=== PATIENT | female | born 1945 | race Caucasian/White ===

== ENCOUNTER → 2016-08-20 | Outpatient (CLI) | payer MEDICARE ==
--- NOTE | 2016-08-22 13:26 | MM ---
Reason for exam: screening (asymptomatic). Last mammogram was performed 1 year and 1 month ago. History: Patient is postmenopausal. Family history of breast cancer in mother at age 80. Physical Findings: A clinical breast exam by your physician is recommended on an annual basis and results should be correlated with mammographic findings. MG 3D Screening Mammo W/Cad Bilateral CC and MLO view(s) were taken. Prior study comparison: July 25, 2015, bilateral MG 3d screening mammo w/cad. June 23, 2014, bilateral MG screening mammo w CAD. March 03, 2013, bilateral digital screening mammo w/CAD. The breast tissue is heterogeneously dense. This may lower the sensitivity of mammography. Finding: There are occasional typically benign round calcifications in the left breast. There is no discrete abnormality. ASSESSMENT: Benign, BI-RAD 2 RECOMMENDATION: Routine screening mammogram of both breasts in 1 year.
== END | disposition home or self-care (01) ==
LOC: RADMAMWWP 10:19
PROVIDERS: ATTEND Obstetrics & Gynecology
DX: Z12.31 Encounter for screening mammogram for malignant neoplasm of breast (principal)
CPT/HCPCS: 77063; G0202

== ENCOUNTER → 2017-10-14 | Outpatient (CLI) | payer MEDICARE ==
--- NOTE | 2017-10-14 10:19 | BD ---
EXAMINATION TYPE: Axial Bone Density DATE OF EXAM: 10/14/2017 COMPARISON: NONE CLINICAL HISTORY: Screening for osteoporosis. Postmenopausal female. Height: 5 FT 2 IN Weight: 163 FRAX RISK QUESTIONS: RISK FACTORS HISTORY OF: Active: YES Postmenopausal woman: AGE 50 MEDICATIONS: Additional Medications: CELEXA, Additional History: EXAM MEASUREMENTS: Bone mineral densitometry was performed using the [employer] System. Bone mineral density as measured about the Lumbar spine is: ----- L1-L4(G/cm2): 1.277 T Score Values are as follows: ----- L2: 1.1 ----- L3: 0.4 ----- L4: 0.7 ----- L1-L4: 0.8 Bone mineral density has: DECREASED -1.2 % since study of: 2012 Bone mineral density about the R hip (g/cm2): 0.869 Bone mineral density about the L hip (g/cm2): 0.888 T Score values are as follows: -----R Neck: -1.2 -----L Neck: -1.1 -----R Total: 0.0 -----L Total: -0.1 Bone mineral density has: DECREASED -3.1 % since study of: 2012 IMPRESSION: Osteopenia (T Score between -2.5 and -1). There is slightly increased risk of fracture and the patient may be considered for treatment. Re-Screen 2-5 years. NOTE: T-SCORE=SD OF THE YOUNG ADULT MEAN.
--- NOTE | 2017-10-16 07:51 | MM ---
Reason for exam: screening (asymptomatic). Last mammogram was performed 1 year and 2 months ago. History: Patient is postmenopausal. Family history of breast cancer in mother at age 80. Physical Findings: A clinical breast exam by your physician is recommended on an annual basis and results should be correlated with mammographic findings. MG 3D Screening Mammo W/Cad Bilateral CC and MLO view(s) were taken. Prior study comparison: August 20, 2016, bilateral MG 3d screening mammo w/cad. July 25, 2015, bilateral MG 3d screening mammo w/cad. The breast tissue is extremely dense which could obscure a lesion on mammography. No significant changes when compared with prior studies. ASSESSMENT: Benign, BI-RAD 2 RECOMMENDATION: Routine screening mammogram of both breasts in 1 year.
== END | disposition home or self-care (01) ==
LOC: RADMAMWWP 08:17
PROVIDERS: ATTEND Obstetrics & Gynecology
DX: Z12.31 Encounter for screening mammogram for malignant neoplasm of breast (principal); Z13.820 Encounter for screening for osteoporosis; M85.80 Other specified disorders of bone density and structure, unspecified site
CPT/HCPCS: 77063; 77067; 77080

== ENCOUNTER → 2018-12-22 | Outpatient (CLI) | payer MEDICARE ==
--- NOTE | 2018-12-24 10:57 | MM ---
Reason for exam: screening (asymptomatic). Last mammogram was performed 1 year and 2 months ago. History: Patient is postmenopausal. Family history of breast cancer in mother at age 80. Physical Findings: A clinical breast exam by your physician is recommended on an annual basis and results should be correlated with mammographic findings. MG 3D Screening Mammo W/Cad Bilateral CC and MLO view(s) were taken. Prior study comparison: October 14, 2017, bilateral MG 3d screening mammo w/cad. August 20, 2016, bilateral MG 3d screening mammo w/cad. The breast tissue is heterogeneously dense. This may lower the sensitivity of mammography. No significant changes when compared with prior studies. ASSESSMENT: Negative, BI-RAD 1 RECOMMENDATION: Routine screening mammogram of both breasts in 1 year.
== END | disposition home or self-care (01) ==
LOC: RADMAMWWP 14:17
PROVIDERS: ATTEND Obstetrics & Gynecology
DX: Z12.31 Encounter for screening mammogram for malignant neoplasm of breast (principal); Z78.0 Asymptomatic menopausal state; Z80.3 Family history of malignant neoplasm of breast
CPT/HCPCS: 77063; 77067

== ENCOUNTER → 2019-12-30 | Outpatient (CLI) | payer MEDICARE ==
--- NOTE | 2019-12-30 15:32 | BD ---
EXAMINATION TYPE: Axial Bone Density DATE OF EXAM: 12/30/2019 COMPARISON: NONE CLINICAL HISTORY: Height: 5 FT 3 IN Weight: 169 FRAX RISK QUESTIONS: Alcohol (3 or more units per day): NO Family History (Parent hip fracture): NO Glucocorticoids (More than 3mos): NO (Ex: prednisone, prednisolone, methylprednisolone, dexamethasone, and hydrocortisone). History of Fracture in Adulthood: NO Secondary Osteoporosis: 1. Type 1 Diabetes: NO 2. Hyperthyroidism: NO 3. Menopause before 45: NO 4. Malnutrition: NO 5. Chronic liver disease: NO Rheumatoid Arthritis: NO Current Tobacco Use: NO RISK FACTORS HISTORY OF: Family History of Osteoporosis: YES Active: YES Postmenopausal woman: AGE 50 MEDICATIONS: Additional Medications: CELEXA, BLOOD PRESSURE MEDS, VIT D3 Additional History: EXAM MEASUREMENTS: Bone mineral densitometry was performed using the [employer] System. Bone mineral density as measured about the Lumbar spine is: ----- L1-L4(G/cm2): 1.291 T Score Values are as follows: ----- L2: 1.6 ----- L3: 0.4 ----- L4: 0.7 ----- L1-L4: 0.9 Bone mineral density has: INCREASED 1.4 % since study of: 2017 Bone mineral density about the R hip (g/cm2): 0.890 Bone mineral density about the L hip (g/cm2): 0.893 T Score values are as follows: -----R Neck: -1.1 -----L Neck: -1.0 -----R Total: -0.1 -----L Total: -0.1 Bone mineral density has: INCREASED 0.1 % since study of: 2018 IMPRESSION: Osteopenia (T Score between -2.5 and -1). There is slightly increased risk of fracture and the patient may be considered for treatment. Re-Screen 2-5 years. NOTE: T-SCORE=SD OF THE YOUNG ADULT MEAN.
--- NOTE | 2020-01-03 11:03 | MM ---
Reason for exam: screening (asymptomatic). Last mammogram was performed 1 year ago. History: Patient is postmenopausal. Family history of breast cancer in mother at age 80. Physical Findings: A clinical breast exam by your physician is recommended on an annual basis and results should be correlated with mammographic findings. MG 3D Screening Mammo W/Cad Bilateral CC and MLO view(s) were taken. Prior study comparison: December 22, 2018, bilateral MG 3d screening mammo w/cad. October 14, 2017, bilateral MG 3d screening mammo w/cad. The breast tissue is heterogeneously dense. This may lower the sensitivity of mammography. No significant changes when compared with prior studies. ASSESSMENT: Negative, BI-RAD 1 RECOMMENDATION: Routine screening mammogram of both breasts in 1 year.
== END | disposition home or self-care (01) ==
LOC: RADMAMWWP 08:11
PROVIDERS: ATTEND Obstetrics & Gynecology
DX: Z12.31 Encounter for screening mammogram for malignant neoplasm of breast (principal); M85.80 Other specified disorders of bone density and structure, unspecified site
CPT/HCPCS: 77063; 77067; 77080

== ENCOUNTER 2020-04-06 07:26 | Day surgery (SDC) | payer MEDICARE ==
[2020-04-04 13:59] VITALS: BMI 30.1
[~2020-04-06 07:26] MED LIST: LACTATED RINGERS 1,000 ML IV SCH; LIDOCAINE 1% (10MG/ML) FOR IV START INTRADERMA PRN
[2020-04-06 08:03] VITALS: RESP 16; TEMP 97.5
[2020-04-06] MEDS ORDERED: PROPOFOL 10 MG/ML 20 ML VIAL IV ONE (08:15)
--- NOTE | 2020-04-06 08:41 | P.PCN ---
Date of Procedure: 04/06/20 Procedure(s) Performed: BRIEF HISTORY: Patient is a 74-year-old pleasant white female scheduled for an elective colonoscopy as a part of evaluation of positive cologuard. No prior history of colonoscopy in the past. PROCEDURE PERFORMED: Colonoscopy with biopsy. PREOPERATIVE DIAGNOSIS: Positive cologuard. IV sedation per Anesthesia. PROCEDURE: After informed consent was obtained, the patient, was brought into the endoscopy unit. IV sedation was administered by Anesthesia under continuous monitoring. Digital rectal examination was normal. Initially the Olympus CF-160 flexible video pediatric colonoscope was then inserted in the rectum, gradually advanced into the cecum with mild to moderate difficulty. Careful examination was performed as the scope was gradually being withdrawn. Ileocecal valve and the appendiceal orifice were visualized and appeared normal. Prep was excellent. On the ileocecal valve there was a 5 mm superficial ulcer that was biopsied. Mucosa of the cecum, ascending colon, transverse colon, descending colon, sigmoid colon, and rectum appeared normal. Scattered sigmoid diverticulosis seen. Retroflexion was performed in the rectum and no lesions were seen. The patient tolerated the procedure well. IMPRESSION: Small superficial ulcerated on the ileocecal valve status post biopsy Scattered sigmoid diverticulosis No evidence of colorectal neoplasia. RECOMMENDATIONS: Findings of this examination were discussed with the patient as well as her family. She was advised to follow with the biopsy results. She can have a repeat screening colonoscopy in 10 years.
[2020-04-06 09:04] VITALS: BP 118/72; PULSE 81
== END 2020-04-06 09:26 | disposition home or self-care (01) ==
LOC: ORWHC2ENDO 07:26
PROVIDERS: ATTEND Internal Medicine Gastroenterology
DX: K63.3 Ulcer of intestine (principal); K57.30 Diverticulosis of large intestine without perforation or abscess without bleeding; I10 Essential (primary) hypertension; F41.9 Anxiety disorder, unspecified; Z87.891 Personal history of nicotine dependence; Z90.710 Acquired absence of both cervix and uterus; Z98.890 Other specified postprocedural states
CPT/HCPCS: 88305; 45380; J2704

== ENCOUNTER 2020-06-12 08:24 | Emergency (ER) | payer MEDICARE ==
[2020-06-12 08:30] VITALS: RESP 18; TEMP 98.9
[2020-06-12 11:05] LABS: Basophils # (A) 0.1 k/uL (0-0.2); Basophils % (A) 1 %; Eosinophils % (A) 1 %; HCT 45.7 % (34.0-46.0); HGB 15.9 gm/dL (11.4-16.0); Lymphocytes # (A) 1.1 k/uL (1.0-4.8); Lymphocytes % (A) 14 %; MCH 30.7 pg (25.0-35.0); MCHC 34.7 g/dL (31.0-37.0); MCV 88.6 fL (80.0-100.0); Monocytes # (A) 0.4 k/uL (0-1.0); Monocytes % (A) 5 %; Neutrophils # (A) 6.4 k/uL (1.3-7.7); Neutrophils % (A) 79 %; Platelet Count 361 k/uL (150-450); RBC 5.16 m/uL (3.80-5.40); RDW 12.7 % (11.5-15.5); WBC 8.1 k/uL (3.8-10.6)
[2020-06-12] MEDS ORDERED: LORazepam 1 MG TAB PO STA (11:12)
[2020-06-12 11:18] LABS: Appearance,Urine Cloudy (Clear); Bacteria,Urine Rare /hpf; Bilirubin,Urine Negative (Negative); Blood,Urine Negative (Negative); Color,Urine Yellow; Glucose,Urine (UA) Negative (Negative); Hyaline Casts,Urine 7 /lpf (0-2); Ketones,Urine 2+ (Negative); Leukocyte Esterase,Urine Large (Negative); Mucus,Urine Many /hpf; Nitrite,Urine Negative (Negative); Protein,Urine Trace (Negative); RBC,Urine 2 /hpf (0-5); Specific Gravity,Urine 1.023 (1.001-1.035); Squamous Epithelial Cell,Urine 5 /hpf (0-4); Urobilinogen,Urine <2.0 mg/dL (<2.0); WBC,Urine 12 /hpf (0-5)
[2020-06-12 11:19] LABS: ALT 13 U/L (4-34); AST 19 U/L (14-36); African American GFR (CKD) >90 (>60 ml/min/1.73 sqM); Albumin 4.5 g/dL (3.5-5.0); Alkaline Phosphatase 77 U/L (38-126); Anion Gap 10 mmol/L; Blood Urea Nitrogen 17 mg/dL (7-17); Calcium 9.5 mg/dL (8.4-10.2); Carbon Dioxide 21 mmol/L (22-30); Chloride 110 mmol/L (98-107); Glucose 105 mg/dL (74-99); Magnesium 2.1 mg/dL (1.6-2.3); Non-African American GFR(CKD) 88 (>60 ml/min/1.73 sqM); Potassium 4.2 mmol/L (3.5-5.1); Sodium 141 mmol/L (137-145); Total Bilirubin 0.6 mg/dL (0.2-1.3); Total Protein 7.4 g/dL (6.3-8.2)
[2020-06-12 11:35] LABS: Cocaine Screen,Urine Not Detected (NotDetected); Phencyclidine Screen,Urine Not Detected (NotDetected); Urn Cannabinoid Scrn Not Detected (NotDetected)
[2020-06-12 11:36] LABS: Amphetamine Screen,Urine Not Detected (NotDetected); Barbiturate Screen,Urine Not Detected (NotDetected); Benzodiazepines Screen,Urine Detected (NotDetected); Methadone Screen, Urine Not Detected (NotDetected); Opiate Screen,Urine Not Detected (NotDetected); Oxycodone Screen, Urine Not Detected (NotDetected); Tricyclic Antidepressant,Urine Not Detected (NotDetected)
--- NOTE | 2020-06-12 11:48 | ED ---
Psych HPI - General Source: patient Mode of arrival: ambulatory <Abbey Bustos - Last Filed: 06/12/20 13:50> <Sudhakar Guy - Last Filed: 06/12/20 16:31> - General Chief Complaint: Psychiatric Symptoms Stated Complaint: Sob/Anxiety Time Seen by Provider: 06/12/20 08:33 - History of Present Illness Initial Comments: 10-year-old male presenting for anxiety since April. Patient states that she has had extreme anxiety since April she states her she come very anxious which is frequently/daily, that she becomes short of breath with these episodes. Patient states that she has no chest pain she denies any fevers cough leg swelling hemoptysis history DVT pulmonary embolism she denies recent surgeries or immobilization. Patient denies any pain with deep inspiration. Denies jaw or arm pain. Denies back pain/abdominal pain or palpitations. Patient states she has almost 100% certain that the shortness of breath is secondary to anxiety as when the anxiety is maximal that has been the shortness of breath is maximal. Patient states that which takes Ativan and this seems to help with the symptoms however she was taking a lot of Ativan and when she switched her psychiatrist he changed her from celexa to another medications gradually. Patient states that he told her not to take the ativan daily or multiple times a day as it is made for PRN use. Patient states that she cannot control her anxiety and is not sure what to do. She denies suicidal or homicial ideations. remaining ROS (-)> (Abbey Bustos) - Related Data Home Medications Medication Instructions Recorded Confirmed Cholecalciferol [Vitamin D3 (25 50 mcg PO DAILY 04/04/20 06/12/20 Mcg = 1000 Iu)] Telmisartan 20 mg PO QAM 04/04/20 06/12/20 Citalopram Hydrobromide [CeleXA] See Taper PO DAILY 06/12/20 06/12/20 Sertraline [Zoloft] See Taper PO DAILY 06/12/20 06/12/20 Previous Rx's Medication Instructions Recorded busPIRone HCl [Buspar] 10 mg PO BID PRN #8 tab 06/12/20 Allergies Allergy/AdvReac Type Severity Reaction Status Date / Time No Known Allergies Allergy Verified 06/12/20 11:40 Review of Systems ROS Other: All systems not noted in ROS Statement are negative. <Abbey Bustos - Last Filed: 06/12/20 13:50> ROS Other: All systems not noted in ROS Statement are negative. <Sudhakar Guy - Last Filed: 06/12/20 16:31> ROS Statement: Those systems with pertinent positive or pertinent negative responses have been documented in the HPI. Past Medical History Past Medical History: Hypertension Additional Past Medical History / Comment(s): HYPOGLYCEMIA (WATCHS DIET). History of Any Multi-Drug Resistant Organisms: None Reported Past Surgical History: Adenoidectomy, Appendectomy, Hernia Repair, Hysterectomy, Tonsillectomy Additional Past Surgical History / Comment(s): RIGHT INGUINAL HERNIA, LEEP PROCEDURE. Past Anesthesia/Blood Transfusion Reactions: Postoperative Nausea & Vomiting (PONV) Additional Past Anesthesia/Blood Transfusion Reaction / Comment(s): PONV X1 Surgery. Past Psychological History: Anxiety Smoking Status: Former smoker Past Alcohol Use History: Occasional Past Drug Use History: None Reported - Past Family History Father Family Medical History: Cancer Brother(s) Family Medical History: Cancer Mother Family Medical History: Cancer <Abbey Bustos - Last Filed: 06/12/20 13:50> General Exam Limitations: no limitations <Abbey Bustos - Last Filed: 06/12/20 13:50> - General Exam Comments Initial Comments: General: The patient is awake and alert, in no distress Eye: Pupils are equal, round and reactive to light, extra-ocular movements are intact. No nystagmus. There is normal conjunctiva bilaterally. No signs of icterus. Ears, nose, mouth and throat: There are moist mucous membranes and no oral lesions. Neck: The neck is supple, there is no tenderness or JVD. Cardiovascular: There is a regular rate and rhythm. No murmur, rub or gallop is appreciated. Respiratory: Lungs are clear to auscultation, respirations are non-labored, breath sounds are equal. No wheezes, stridor, rales, or rhonchi. Gastrointestinal: Soft, non-distended, non-tender abdomen without masses or organomegaly noted. There is no rebound or guarding present. Musculoskeletal: Normal ROM, no tenderness. Strength 5/5. Sensation intact. Radial pulses equal bilaterally 2+. Neurological: A&O x 3. CN II-XII intact grossly, There are no obvious motor or sensory deficits. Coordination appears grossly intact. Speech is normal. Skin: Skin is warm and dry and no rashes or lesions are noted. No leg swelling or calf pain. Psychiatric: Cooperative, appropriate mood & affect, normal judgment. (Abbey Bustos) Course Vital Signs 06/12/20 08:26 Temperature 98.9 F Pulse Rate 93 Respiratory 18 Rate Blood Pressure 166/89 O2 Sat by Pulse 98 Oximetry Medical Decision Making - Lab Data Result diagrams: 06/12/20 10:52 06/12/20 10:52 <Abbey Bustos - Last Filed: 06/12/20 13:50> - Lab Data Result diagrams: 06/12/20 10:52 06/12/20 10:52 - Radiology Data Radiology results: image reviewed (Assessment shows evidence of previous granulomatous disease. No acute process per) <Sudhakar Guy - Last Filed: 06/12/20 16:31> - Medical Decision Making Patient reevaluated and reexamined by myself, Dr. Guy. I do agree with PA findings. This includes diagnostic interpretation and treatment plan. Patient resting comfortably in bed. Patient states she does get frequent anxiety, daily. Symptoms resolved with Ativan however is concerned that she is using too much of it. Patient has had recent medication changes. Patient was seen by mental health services who does recommend discharge. They do request patient be provided BuSpar twice a day as needed and patient to take melatonin at nighttime. Patient denies suicidal ideation. (Sudhakar Guy) - Lab Data Lab Results 06/12/20 06/12/20 06/12/20 Range/Units 10:52 10:52 10:52 WBC 8.1 (3.8-10.6) k/uL RBC 5.16 (3.80-5.40) m/uL Hgb 15.9 (11.4-16.0) gm/dL Hct 45.7 (34.0-46.0) % MCV 88.6 (80.0-100.0) fL MCH 30.7 (25.0-35.0) pg MCHC 34.7 (31.0-37.0) g/dL RDW 12.7 (11.5-15.5) % Plt Count 361 (150-450) k/uL MPV 7.0 Neutrophils % 79 % Lymphocytes % 14 % Monocytes % 5 % Eosinophils % 1 % Basophils % 1 % Neutrophils # 6.4 (1.3-7.7) k/uL Lymphocytes # 1.1 (1.0-4.8) k/uL Monocytes # 0.4 (0-1.0) k/uL Eosinophils # 0.0 (0-0.7) k/uL Basophils # 0.1 (0-0.2) k/uL Sodium 141 (137-145) mmol/L Potassium 4.2 (3.5-5.1) mmol/L Chloride 110 H (98-107) mmol/L Carbon Dioxide 21 L (22-30) mmol/L Anion Gap 10 mmol/L BUN 17 (7-17) mg/dL Creatinine 0.68 (0.52-1.04) mg/dL Est GFR (CKD-EPI)AfAm >90 (>60 ml/min/1.73 sqM) Est GFR (CKD-EPI)NonAf 88 (>60 ml/min/1.73 sqM) Glucose 105 H (74-99) mg/dL Calcium 9.5 (8.4-10.2) mg/dL Magnesium 2.1 (1.6-2.3) mg/dL Total Bilirubin 0.6 (0.2-1.3) mg/dL AST 19 (14-36) U/L ALT 13 (4-34) U/L Alkaline Phosphatase 77 (38-126) U/L Troponin I (0.000-0.034) ng/mL Total Protein 7.4 (6.3-8.2) g/dL Albumin 4.5 (3.5-5.0) g/dL Urine Color Yellow Urine Appearance Cloudy H (Clear) Urine pH 6.0 (5.0-8.0) Ur Specific [place] 1.023 (1.001-1.035) Urine Protein Trace H (Negative) Urine Glucose (UA) Negative (Negative) Urine Ketones 2+ H (Negative) Urine Blood Negative (Negative) Urine Nitrite Negative (Negative) Urine Bilirubin Negative (Negative) Urine Urobilinogen <2.0 (<2.0) mg/dL Ur Leukocyte Esterase Large H (Negative) Urine RBC 2 (0-5) /hpf Urine WBC 12 H (0-5) /hpf Ur Squamous Epith Cells 5 H (0-4) /hpf Urine Bacteria Rare H (None) /hpf Hyaline Casts 7 H (0-2) /lpf Urine Mucus Many H (None) /hpf Urine Opiates Screen Not Detected (NotDetected) Ur Oxycodone Screen Not Detected (NotDetected) Urine Methadone Screen Not Detected (NotDetected) Ur Propoxyphene Screen Not Detected (NotDetected) Ur Barbiturates Screen Not Detected (NotDetected) U Tricyclic Antidepress Not Detected (NotDetected) Ur Phencyclidine Scrn Not Detected (NotDetected) Ur Amphetamines Screen Not Detected (NotDetected) U Methamphetamines Scrn Not Detected (NotDetected) U Benzodiazepines Scrn Detected H (NotDetected) Urine Cocaine Screen Not Detected (NotDetected) U Marijuana (THC) Screen Not Detected (NotDetected) 06/12/20 Range/Units 10:52 WBC (3.8-10.6) k/uL RBC (3.80-5.40) m/uL Hgb (11.4-16.0) gm/dL Hct (34.0-46.0) % MCV (80.0-100.0) fL MCH (25.0-35.0) pg MCHC (31.0-37.0) g/dL RDW (11.5-15.5) % Plt Count (150-450) k/uL MPV Neutrophils % % Lymphocytes % % Monocytes % % Eosinophils % % Basophils % % Neutrophils # (1.3-7.7) k/uL Lymphocytes # (1.0-4.8) k/uL Monocytes # (0-1.0) k/uL Eosinophils # (0-0.7) k/uL Basophils # (0-0.2) k/uL Sodium (137-145) mmol/L Potassium (3.5-5.1) mmol/L Chloride (98-107) mmol/L Carbon Dioxide (22-30) mmol/L Anion Gap mmol/L BUN (7-17) mg/dL Creatinine (0.52-1.04) mg/dL Est GFR (CKD-EPI)AfAm (>60 ml/min/1.73 sqM) Est GFR (CKD-EPI)NonAf (>60 ml/min/1.73 sqM) Glucose (74-99) mg/dL Calcium (8.4-10.2) mg/dL Magnesium (1.6-2.3) mg/dL Total Bilirubin (0.2-1.3) mg/dL AST (14-36) U/L ALT (4-34) U/L Alkaline Phosphatase (38-126) U/L Troponin I <0.012 (0.000-0.034) ng/mL Total Protein (6.3-8.2) g/dL Albumin (3.5-5.0) g/dL Urine Color Urine Appearance (Clear) Urine pH (5.0-8.0) Ur Specific [place] (1.001-1.035) Urine Protein (Negative) Urine Glucose (UA) (Negative) Urine Ketones (Negative) Urine Blood (Negative) Urine Nitrite (Negative) Urine Bilirubin (Negative) Urine Urobilinogen (<2.0) mg/dL Ur Leukocyte Esterase (Negative) Urine RBC (0-5) /hpf Urine WBC (0-5) /hpf Ur Squamous Epith Cells (0-4) /hpf Urine Bacteria (None) /hpf Hyaline Casts (0-2) /lpf Urine Mucus (None) /hpf Urine Opiates Screen (NotDetected) Ur Oxycodone Screen (NotDetected) Urine Methadone Screen (NotDetected) Ur Propoxyphene Screen (NotDetected) Ur Barbiturates Screen (NotDetected) U Tricyclic Antidepress (NotDetected) Ur Phencyclidine Scrn (NotDetected) Ur Amphetamines Screen (NotDetected) U Methamphetamines Scrn (NotDetected) U Benzodiazepines Scrn (NotDetected) Urine Cocaine Screen (NotDetected) U Marijuana (THC) Screen (NotDetected) Disposition <Abbey Bustos - Last Filed: 06/12/20 13:50> Is patient prescribed a controlled substance at d/c from ED?: No Time of Disposition: 16:29 <Sudhakar Guy - Last Filed: 06/12/20 16:31> Clinical Impression: Acute anxiety Disposition: HOME SELF-CARE Condition: Stable Instructions (If sedation given, give patient instructions): Anxiety (ED) Additional Instructions: Please follow-up with your primary care physician and psychiatrist in the next couple days for recheck. Prescription has been sent to [facility]. [id number] melatonin 5 mg as needed at night for sleep. Return for thoughts of self-harm, worsening or changing symptoms or other concerns. Prescriptions: busPIRone HCl [Buspar] 10 mg PO BID PRN #8 tab PRN Reason: Anxiety Referrals: Joselito Galvez MD [Primary Care Provider] - 1-2 days
--- NOTE | 2020-06-12 12:21 | XR ---
EXAMINATION TYPE: XR chest 2V DATE OF EXAM: 06/12/2020 COMPARISON: None HISTORY: 79-year-old female dyspnea, anxiety, shortness of breath TECHNIQUE: PA and lateral views FINDINGS: The cardiomediastinal silhouette, aorta, and pulmonary vasculature are within normal limits. High den sity nodules left midlung and periphery of the left base suggesting calcified granulomas. No consolid ation or pleural effusion. IMPRESSION: Evidence of prior granulomatous disease. No acute process seen.
[2020-06-12 17:04] VITALS: BP 154/82; PULSE 75
== END 2020-06-12 17:13 | disposition home or self-care (01) ==
LOC: EC 08:24
DX: F41.9 Anxiety disorder, unspecified (principal); I10 Essential (primary) hypertension; Z79.899 Other long term (current) drug therapy; Z87.891 Personal history of nicotine dependence
CPT/HCPCS: 36415; 71046; 80053; 80306; 81001; 83735; 84484; 85025; 93005; 99285

== ENCOUNTER → 2021-01-31 | Outpatient (CLI) | payer MEDICARE ==
--- NOTE | 2021-02-01 11:51 | MM ---
Reason for exam: screening (asymptomatic). Last mammogram was performed 1 year and 1 month ago. History: Patient is postmenopausal. Family history of breast cancer in sister at age 79 and breast cancer in mother at age 80. Physical Findings: A clinical breast exam by your physician is recommended on an annual basis and results should be correlated with mammographic findings. MG 3D Screening Mammo W/Cad Bilateral CC and MLO view(s) were taken. Prior study comparison: December 30, 2019, bilateral MG 3d screening mammo w/cad. December 22, 2018, bilateral MG 3d screening mammo w/cad. The breast tissue is heterogeneously dense. This may lower the sensitivity of mammography. There are benign appearing round calcifications bilaterally. There is no discrete abnormality. ASSESSMENT: Benign, BI-RAD 2 RECOMMENDATION: Routine screening mammogram of both breasts in 1 year.
== END | disposition home or self-care (01) ==
LOC: RADMAMWWP 09:34
PROVIDERS: ATTEND Obstetrics & Gynecology
DX: Z12.31 Encounter for screening mammogram for malignant neoplasm of breast (principal)
CPT/HCPCS: 77063; 77067

== ENCOUNTER → 2022-02-03 | Outpatient (CLI) | payer MEDICARE ==
--- NOTE | 2022-02-04 08:41 | MM ---
Reason for Exam: Screening (asymptomatic). Last screening mammogram was performed 12 month(s) ago. Patient History: Menarche at age 14. First Full-Term at age 28. Left ovary removed at age 69. Right ovary removed at age 69. Hysterectomy at age 69. Postmenopausal. Patient has history of breast feeding. Niece had breast cancer under age 50. Sister had breast cancer, age 79. Mother had breast cancer, age 80. Risk Values: Alexia 5 year model risk: 6.1%. NCI Lifetime model risk: 13.5%. Prior Study Comparison: 12/30/1994 Screening Mammogram, [facility]. 07/25/2015 Bilateral Screening Mammogram, [facility]. 08/20/2016 Bilateral Screening Mammogram, [facility]. 10/14/2017 Bilateral Screening Mammogram, [facility]. 12/22/2018 Bilateral Screening Mammogram, [facility]. 12/30/2019 Bilateral Screening Mammogram, [facility]. 01/31/2021 Bilateral Screening Mammogram, [facility]. Tissue Density: The breast tissue is heterogeneously dense. This may lower the sensitivity of mammography. Findings: Analyzed By CAD. There is no suspicious group of microcalcifications or new suspicious mass in either breast. Benign-appearing round calcifications bilaterally. No significant change from prior exams. Overall Assessment: Benign, BI-RAD 2 Management: Screening Mammogram of both breasts in 1 year. A clinical breast exam by your physician is recommended on an annual basis and results should be correlated with mammographic findings. Electronically signed and approved by: Raul Walker D.O.
== END | disposition home or self-care (01) ==
LOC: RADMAMWWP 09:23
PROVIDERS: ATTEND Obstetrics & Gynecology
DX: Z12.31 Encounter for screening mammogram for malignant neoplasm of breast (principal); Z78.0 Asymptomatic menopausal state; Z80.3 Family history of malignant neoplasm of breast; Z90.721 Acquired absence of ovaries, unilateral
CPT/HCPCS: 77063; 77067

== ENCOUNTER 2022-04-07 10:25 | Emergency (ER) | payer MEDICARE ==
[2022-04-07 12:43] LABS: Basophils # (A) 0.1 k/uL (0-0.2); Basophils % (A) 1 %; Eosinophils # (A) 0.1 k/uL (0-0.7); Eosinophils % (A) 1 %; HCT 41.8 % (34.0-46.0); HGB 13.9 gm/dL (11.4-16.0); Lymphocytes # (A) 1.2 k/uL (1.0-4.8); Lymphocytes % (A) 15 %; MCH 29.6 pg (25.0-35.0); MCHC 33.2 g/dL (31.0-37.0); Mean Platelet Volume 6.9; Monocytes # (A) 0.4 k/uL (0-1.0); Monocytes % (A) 5 %; Neutrophils # (A) 6.2 k/uL (1.3-7.7); Neutrophils % (A) 77 %; Platelet Count 311 k/uL (150-450); RBC 4.69 m/uL (3.80-5.40); RDW 12.7 % (11.5-15.5)
[2022-04-07 12:58] LABS: African American GFR (CKD) >90 (>60 ml/min/1.73 sqM); Anion Gap 6 mmol/L; Blood Urea Nitrogen 17 mg/dL (7-17); Calcium 8.7 mg/dL (8.4-10.2); Carbon Dioxide 26 mmol/L (22-30); Chloride 106 mmol/L (98-107); Glucose 92 mg/dL (74-99); Non-African American GFR(CKD) 89 (>60 ml/min/1.73 sqM); Potassium 3.9 mmol/L (3.5-5.1); Sodium 138 mmol/L (137-145)
--- NOTE | 2022-04-07 15:23 | ED ---
General Adult HPI - General Chief complaint: Psychiatric Symptoms Stated complaint: anxiety Time Seen by Provider: 04/07/22 11:53 Source: patient, RN notes reviewed, old records reviewed Mode of arrival: ambulatory Limitations: no limitations - History of Present Illness Initial comments: Patient is a 76-year-old female with past medical history remarkable for anxiety who presents emergency Department seeking psychiatric admission. States that her anxiety medications are not helping. He has been on them for a while, including Lexapro and Lamictal with minimal improvement. Presents for further evaluation at this time. Endorse's suicidal ideations but denies plans or attempts. Denies visual or auditory hallucinations. Denies homicidal ideati ons, attempts, plans. Denies any chest pain, shortness breath, abdominal pain, nausea, vomiting. No other acute complaint at this time. Presents emergency department seeking evaluation possible inpatient admission. - Related Data Home Medications Medication Instructions Recorded Confirmed Telmisartan 20 mg PO QAM 04/04/20 04/07/22 Citalopram Hydrobromide 10 mg PO DAILY 04/07/22 04/07/22 [Citalopram HBr] Escitalopram [Lexapro] 20 mg PO DAILY 04/07/22 04/07/22 LORazepam [Ativan] 0.5 mg PO BID PRN 04/07/22 04/07/22 LORazepam [Ativan] 1 mg PO TID PRN 04/07/22 04/07/22 lamoTRIgine [LaMICtal] 25 mg PO DAILY 04/07/22 04/07/22 Allergies Allergy/AdvReac Type Severity Reaction Status Date / Time No Known Allergies Allergy Verified 04/07/22 14:02 Review of Systems ROS Statement: Those systems with pertinent positive or pertinent negative responses have been documented in the HPI. ROS Other: All systems not noted in ROS Statement are negative. Past Medical History Past Medical History: Hypertension Additional Past Medical History / Comment(s): HYPOGLYCEMIA (WATCHS DIET). History of Any Multi-Drug Resistant Organisms: None Reported Past Surgical History: Adenoidectomy, Appendectomy, Hernia Repair, Hysterectomy, Tonsillectomy Additional Past Surgical History / Comment(s): RIGHT INGUINAL HERNIA, LEEP PROCEDURE. Past Anesthesia/Blood Transfusion Reactions: Postoperative Nausea & Vomiting (PONV) Additional Past Anesthesia/Blood Transfusion Reaction / Comment(s): PONV X1 Surgery. Past Psychological History: Anxiety Smoking Status: Former smoker Past Alcohol Use History: Occasional Past Drug Use History: None Reported - Past Family History Father Family Medical History: Cancer Brother(s) Family Medical History: Cancer Mother Family Medical History: Cancer General Exam - General Exam Comments Initial Comments: Review of Systems: CONST: Denies fever EYES: Denies blurry vision ENT: Denies nasal congestion C/V: Denies Chest pain RESP: Denies shortness of breath GI: Denies abdominal pain : Denies dysuria SKIN: Denies rash. MSK: Denies joint pain. NEURO: Denies headache PSYCH: Denies homicidal ideations/plans/attempts. Denies visual or auditory hallucinations. She endorses suicidal ideations. Denies visual or auditory hallucinations. Limitations: no limitations Course Vital Signs 04/07/22 04/07/22 04/07/22 10:33 15:00 18:39 Temperature 98.4 F Pulse Rate 95 94 84 Respiratory 20 18 18 Rate Blood Pressure 133/78 129/69 138/82 O2 Sat by Pulse 99 99 97 Oximetry 04/07/22 04/08/22 04/08/22 19:23 05:52 12:22 Temperature 98.5 F Pulse Rate 86 60 90 Respiratory 18 18 18 Rate Blood Pressure 138/76 142/77 115/57 O2 Sat by Pulse 97 98 97 Oximetry 04/09/22 04/09/22 08:00 17:30 Temperature 98.9 F 98.5 F Pulse Rate 90 78 Respiratory 16 18 Rate Blood Pressure 152/84 135/79 O2 Sat by Pulse 98 97 Oximetry Medical Decision Making - Medical Decision Making Based on patient's presentation and physical exam, I am concerned for anxiety for the patient at this time. We'll obtain basic screening labs. She was placing green scrubs. Suicide precautions were ordered. Sitter was ordered. Vital signs within acceptable limits. Patient was in agreement this plan. Laboratory studies were within except for limits. Covid swab is still pending at this time. BAT is 0. At this time patient is medically cleared for evaluation by psychiatry. Disposition is pending psychiatric evaluation. Nursing staff notified EPS. EPS evaluated the patient and believes that she may the requirements for inpatient geriatric psych. Clinical cert completed by myself. - Lab Data Result diagrams: 04/07/22 12:38 04/07/22 12:38 Lab Results 04/07/22 04/07/22 04/07/22 Range/Units 12:38 12:38 12:38 WBC 8.0 (3.8-10.6) k/uL RBC 4.69 (3.80-5.40) m/uL Hgb 13.9 (11.4-16.0) gm/dL Hct 41.8 (34.0-46.0) % MCV 89.0 (80.0-100.0) fL MCH 29.6 (25.0-35.0) pg MCHC 33.2 (31.0-37.0) g/dL RDW 12.7 (11.5-15.5) % Plt Count 311 (150-450) k/uL MPV 6.9 Neutrophils % 77 % Lymphocytes % 15 % Monocytes % 5 % Eosinophils % 1 % Basophils % 1 % Neutrophils # 6.2 (1.3-7.7) k/uL Lymphocytes # 1.2 (1.0-4.8) k/uL Monocytes # 0.4 (0-1.0) k/uL Eosinophils # 0.1 (0-0.7) k/uL Basophils # 0.1 (0-0.2) k/uL Sodium 138 (137-145) mmol/L Potassium 3.9 (3.5-5.1) mmol/L Chloride 106 (98-107) mmol/L Carbon Dioxide 26 (22-30) mmol/L Anion Gap 6 mmol/L BUN 17 (7-17) mg/dL Creatinine 0.62 (0.52-1.04) mg/dL Est GFR (CKD-EPI)AfAm >90 (>60 ml/min/1.73 sqM) Est GFR (CKD-EPI)NonAf 89 (>60 ml/min/1.73 sqM) Glucose 92 (74-99) mg/dL Calcium 8.7 (8.4-10.2) mg/dL Urine Opiates Screen Not Detected (NotDetected) Ur Oxycodone Screen Not Detected (NotDetected) Urine Methadone Screen Not Detected (NotDetected) Ur Propoxyphene Screen Not Detected (NotDetected) Ur Barbiturates Screen Not Detected (NotDetected) U Tricyclic Antidepress Not Detected (NotDetected) Ur Phencyclidine Scrn Not Detected (NotDetected) Ur Amphetamines Screen Not Detected (NotDetected) U Methamphetamines Scrn Not Detected (NotDetected) U Benzodiazepines Scrn Detected H (NotDetected) Urine Cocaine Screen Not Detected (NotDetected) U Marijuana (THC) Screen Not Detected (NotDetected) Coronavirus (PCR) (Not Detectd) 04/07/22 04/09/22 Range/Units 14:33 12:00 WBC (3.8-10.6) k/uL RBC (3.80-5.40) m/uL Hgb (11.4-16.0) gm/dL Hct (34.0-46.0) % MCV (80.0-100.0) fL MCH (25.0-35.0) pg MCHC (31.0-37.0) g/dL RDW (11.5-15.5) % Plt Count (150-450) k/uL MPV Neutrophils % % Lymphocytes % % Monocytes % % Eosinophils % % Basophils % % Neutrophils # (1.3-7.7) k/uL Lymphocytes # (1.0-4.8) k/uL Monocytes # (0-1.0) k/uL Eosinophils # (0-0.7) k/uL Basophils # (0-0.2) k/uL Sodium (137-145) mmol/L Potassium (3.5-5.1) mmol/L Chloride (98-107) mmol/L Carbon Dioxide (22-30) mmol/L Anion Gap mmol/L BUN (7-17) mg/dL Creatinine (0.52-1.04) mg/dL Est GFR (CKD-EPI)AfAm (>60 ml/min/1.73 sqM) Est GFR (CKD-EPI)NonAf (>60 ml/min/1.73 sqM) Glucose (74-99) mg/dL Calcium (8.4-10.2) mg/dL Urine Opiates Screen (NotDetected) Ur Oxycodone Screen (NotDetected) Urine Methadone Screen (NotDetected) Ur Propoxyphene Screen (NotDetected) Ur Barbiturates Screen (NotDetected) U Tricyclic Antidepress (NotDetected) Ur Phencyclidine Scrn (NotDetected) Ur Amphetamines Screen (NotDetected) U Methamphetamines Scrn (NotDetected) U Benzodiazepines Scrn (NotDetected) Urine Cocaine Screen (NotDetected) U Marijuana (THC) Screen (NotDetected) Coronavirus (PCR) Not Detected Not Detected (Not Detectd) Disposition Clinical Impression: Encounter for psychiatric assessment Disposition: TRANSFER TO PSYCH HOSP/UNIT Condition: Stable Referrals: Joselito Galvez MD [Primary Care Provider] - 1-2 days
[2022-04-07 15:54] LABS: Amphetamine Screen,Urine Not Detected (NotDetected); Barbiturate Screen,Urine Not Detected (NotDetected); Benzodiazepines Screen,Urine Detected (NotDetected); Cocaine Screen,Urine Not Detected (NotDetected); Methadone Screen, Urine Not Detected (NotDetected); Opiate Screen,Urine Not Detected (NotDetected); Oxycodone Screen, Urine Not Detected (NotDetected); Phencyclidine Screen,Urine Not Detected (NotDetected); Tricyclic Antidepressant,Urine Not Detected (NotDetected); Urn Cannabinoid Scrn Not Detected (NotDetected)
[2022-04-07] MEDS ORDERED: LORazepam 1 MG TAB PO STA (20:24)
[2022-04-08] MEDS ORDERED: LORazepam 1 MG TAB PO PRN (10:52)
[2022-04-08] MEDS ORDERED: TELMISARTAN 20 MG PO SCH (11:00)
[2022-04-08] MEDS ORDERED: ESCITALOPRAM 20 MG TAB PO SCH ×2 (11:00)
[2022-04-08] MEDS ORDERED: lamoTRIgine 25 MG TAB PO SCH (11:00)
[2022-04-08] MEDS: LOSARTAN 50 MG TAB PO SCH (11:09)
[2022-04-08] MEDS: CITALOPRAM HYDROBROMIDE 10 MG TAB PO SCH (11:10)
[2022-04-08] MEDS: lamoTRIgine 25 MG TAB PO SCH (11:10)
[2022-04-08] MEDS: LORazepam 1 MG TAB PO PRN ×2 (12:17→22:11)
[2022-04-08] MEDS ORDERED: ACETAMINOPHEN TAB 500 MG TAB PO STA (22:02)
[2022-04-09] MEDS: CITALOPRAM HYDROBROMIDE 10 MG TAB PO SCH (08:26)
[2022-04-09] MEDS: LOSARTAN 50 MG TAB PO SCH (08:29)
[2022-04-09] MEDS: lamoTRIgine 25 MG TAB PO SCH (08:30)
[2022-04-09] MEDS: LORazepam 1 MG TAB PO PRN (12:21)
[2022-04-09 17:31] VITALS: BP 135/79; PULSE 78; RESP 18; TEMP 98.5
== END 2022-04-09 17:31 ==
LOC: EC 10:25
DX: Z00.8 Encounter for other general examination (principal); I10 Essential (primary) hypertension; F41.9 Anxiety disorder, unspecified; Z87.891 Personal history of nicotine dependence; Z79.899 Other long term (current) drug therapy; Z20.822 Contact with and (suspected) exposure to COVID-19
CPT/HCPCS: 36415; 80048; 80306; 82075; 85025; 87635; 99284

== ENCOUNTER → 2023-03-10 | Outpatient (CLI) | payer MEDICARE ==
--- NOTE | 2023-03-11 12:35 | MM ---
Reason for Exam: Screening (asymptomatic). Last mammogram was performed 1 year(s) and 1 month(s) ago. Patient History: Menarche at age 14. First Full-Term at age 28. Left ovary removed at age 69. Right ovary removed at age 69. Hysterectomy at age 69. Postmenopausal. Patient has history of breast feeding. Niece had breast cancer under age 50. Sister had breast cancer, age 79. Mother had breast cancer, age 80. Risk Values: Alexia 5 year model risk: 6.1%. NCI Lifetime model risk: 12.7%. Prior Study Comparison: 12/30/2019 Bilateral Screening Mammogram, [facility]. 01/31/2021 Bilateral Screening Mammogram, [facility]. 02/03/2022 Bilateral MG 3D screening mammo w/cad, [facility]. Tissue Density: The breast tissue is heterogeneously dense. This may lower the sensitivity of mammography. Findings: Analyzed By CAD. There is no suspicious group of microcalcifications or new suspicious mass. Overall Assessment: Negative, BI-RAD 1 Management: Screening Mammogram of both breasts in [address] [facility] will attempt to contact patient to return for supplemental views and ultrasound if indicated. Patient should continue monthly self-breast exams. A clinical breast exam by your physician is recommended on an annual basis. This exam should not preclude additional follow-up of suspicious palpable abnormalities. Note on Alexia scores and lifetime risk: 1. A Alexia score greater than 3% is considered moderate risk. If this is the case, consider specialist referral to assess eligibility for a risk reducing agent. 2. If overall lifetime risk for the development of breast cancer is 20% or higher, the patient may qualify for future screening with alternating mammogram and breast MRI. Electronically signed and approved by: Leoncio Stokes DO
== END | disposition home or self-care (01) ==
LOC: RADMAMWWP 15:55
PROVIDERS: ATTEND Obstetrics & Gynecology
DX: Z12.31 Encounter for screening mammogram for malignant neoplasm of breast (principal); Z78.0 Asymptomatic menopausal state; Z80.3 Family history of malignant neoplasm of breast
CPT/HCPCS: 77063; 77067

== ENCOUNTER → 2023-03-12 | Outpatient (CLI) | payer MEDICARE ==
--- NOTE | 2023-03-15 20:53 | BD ---
EXAMINATION TYPE: Axial Bone Density DATE OF EXAM: 03/12/2023 CLINICAL HISTORY: 77 years old Female. ICD-10 CODE: M85.88 OTH DISRD OF BONE DENSITY AND STRUCTURE, OT Height: 62 Weight: 137 FRAX RISK QUESTIONS: History of Fracture in Adulthood: no Secondary Osteoporosis: no RISK FACTORS HISTORY OF: Family History of Osteoporosis: no Active: yes Diet low in dairy products/other sources of calcium: no Postmenopausal woman: yes MEDICATIONS: Additional Medications: yes hbp, anxiety, vit d. EXAM MEASUREMENTS: Bone mineral densitometry was performed using the [employer] System. Bone mineral density as measured about the Lumbar spine is: ----- L1-L4(G/cm2): 1.282 T Score Values are as follows: ----- L1: 1.4 ----- L2: 0.8 ----- L3: 0.3 ----- L4: 0.9 ----- L1-L4: 0.9 Z Score Values are as follows: ----- L1: 3.2 ----- L2: 2.7 ----- L3: 2.1 ----- L4: 2.7 ----- L1-L4: 2.7 Bone mineral density has: Decreased -0.7% since study of: 12/30/2019 Bone mineral density about the R hip (g/cm2): 0.966 Bone mineral density about the L hip (g/cm2): 0.948 T Score values are as follows: -----R Neck: -1.6 -----L Neck: -1.5 -----R Total: -0.3 -----L Total: -0.5 Z Score values are as follows: -----R Neck: 0.4 -----L Neck: 0.5 -----R Total: 1.5 -----L Total: 1.3 Bone mineral density has: Decreased -4.0% since study of: 12/30/2019 FRAX%s: The graph provided illustrates a 11.9% chance for a major osteoporotic fx and a 2.6% chance f or the hips probability for fx in 10 years time. IMPRESSION: Osteopenia (T Score between -2.5 and -1). There is slightly increased risk of fracture and the patient may be considered for treatment. Re-Screen 2-5 years. NOTE: T-SCORE=SD OF THE YOUNG ADULT MEAN.
== END | disposition home or self-care (01) ==
LOC: RADBDWWP 14:06
PROVIDERS: ATTEND Obstetrics & Gynecology
DX: M85.89 Other specified disorders of bone density and structure, multiple sites (principal); Z78.0 Asymptomatic menopausal state
CPT/HCPCS: 77080

== ENCOUNTER → 2024-03-18 | Outpatient (CLI) | payer MEDICARE ==
--- NOTE | 2024-03-21 08:17 | MM ---
Reason for Exam: Screening (asymptomatic). Last mammogram was performed 1 year(s) and 1 month(s) ago. Patient History: Menarche at age 14. First Full-Term at age 28. Left ovary removed at age 69. Right ovary removed at age 69. Hysterectomy at age 69. Postmenopausal. Patient has history of breast feeding. Niece had breast cancer under age 50. Sister had breast cancer, age 79. Mother had breast cancer, age 80. Risk Values: Alexia 5 year model risk: 6.1%. NCI Lifetime model risk: 12.0%. Prior Study Comparison: 01/31/2021 Bilateral Screening Mammogram, [facility]. 02/03/2022 Bilateral MG 3D screening mammo w/cad, [facility]. 03/10/2023 Bilateral MG 3D screening mammo w/cad, [facility]. Tissue Density: The breasts are heterogeneously dense, which may obscure small masses. Findings: Analyzed By CAD. Right breast: There is no suspicious group of microcalcifications or new suspicious mass. Left breast: There is no suspicious group of microcalcifications or new suspicious mass. Overall Assessment: Negative, BI-RAD 1 Management: Screening Mammogram of both breasts in [address] [facility] will attempt to contact patient to return for supplemental views and ultrasound if indicated. Patient should continue monthly self-breast exams. A clinical breast exam by your physician is recommended on an annual basis. This exam should not preclude additional follow-up of suspicious palpable abnormalities. Note on Alexia scores and lifetime risk: 1. A Alexia score greater than 3% is considered moderate risk. If this is the case, consider specialist referral to assess eligibility for a risk reducing agent. 2. If overall lifetime risk for the development of breast cancer is 20% or higher, the patient may qualify for future screening with alternating mammogram and breast MRI. [facility], , 03/21/2024 8:14 AM. Electronically signed and approved by: Leoncio Stokes DO
== END | disposition home or self-care (01) ==
LOC: RADMAMWWP 10:37
PROVIDERS: ATTEND Internal Medicine
DX: Z12.31 Encounter for screening mammogram for malignant neoplasm of breast (principal); Z90.722 Acquired absence of ovaries, bilateral; Z78.0 Asymptomatic menopausal state; Z80.3 Family history of malignant neoplasm of breast; R92.333 Mammographic heterogeneous density, bilateral breasts
CPT/HCPCS: 77063; 77067